=== PATIENT | male | born 1970 | race Caucasian/White ===

== ENCOUNTER 2020-11-20 12:14 | Emergency (ER) | payer OTHER ==
[~2020-11-20] VITALS: Ht 170.1 cm; Wt 54.4 kg
== END 2020-11-20 15:33 | disposition home or self-care (01) ==
LOC: ED 12:14
DX: S70.01XA Contusion of right hip, initial encounter (principal); V80.010A Animal-rider injured by fall from or being thrown from horse in noncollision accident, initial encounter; Y93.89 Activity, other specified; Y92.89 Other specified places as the place of occurrence of the external cause; Y99.8 Other external cause status